=== PATIENT | male | born 1965 | race African-American/Black ===

== ENCOUNTER 2019-10-29 10:57 | Inpatient (IN) ==
[2019-10-29] MEDS ORDERED: LEVOFLOXACIN INJ 750 MG in PREMIX 1 EACH IV STA (11:27)
[2019-10-29 11:56] LABS: Basophils # 0.1 10*3/uL (0.0-0.2); Basophils % 0.5 % (0.0-0.8); Eosinophils # 0.1 10*3/uL (0.0-0.87); Eosinophils % 0.8 % (0.00-10.9); Hemoglobin 9.4 GM/DL (14.0-18.0); Immature Granulocytes % 0.6 %; Immature Granulocytes Absolute 0.08 #; Lymphocytes % 15.1 % (21.2-54.2); Mean Corpuscular HGB Conc 31.3 GM/DL (32-36); Mean Corpuscular Volume 101.4 FL (87-102); Mean Platelet Volume 9.3 FL (9.6-12.0); Monocytes % 11.8 % (1.7-12.7); Neutrophils % 71.2 % (38.7-73.9); Platelet Count 352 T/CUMM (130-400); Red Blood Count 2.96 MC/CUMM (3.8-5.5); Red Cell Distribution Width 13.5 % (9.3-17.3)
[2019-10-29 12:27] LABS: Albumin 1.4 G/DL (3.4-5.0); Calcium 7.7 MG/DL (8.5-10.1); Osmolality,Calculated 286.7 MOS/KG (273-304); Total Protein 5.7 G/DL (6.4-8.3)
[2019-10-29 12:33] LABS: Eosinophils 1 % (0-10); Lymphocytes 9 % (20-55); Polychromasia Slight; Segmented Neutrophils 81 % (50-85); Total Cells Counted 100
[2019-10-29 12:34] LABS: Atypical Lymphocytes Few; Burr Cells Few; Ovalocytes Slight; Platelet Estimate Increased
[2019-10-29 13:01] LABS: Sedimentation Rate-Westergren 119 MM/HR (0-20)
[2019-10-29] MEDS ORDERED: ONDANSETRON 4 MG/2 ML VIAL IV PRN (13:09)
[2019-10-29] MEDS ORDERED: PROMETHAZINE 25 MG/1 ML VIAL IM PRN (13:09)
[2019-10-29] MEDS ORDERED: VANCOMYCIN INJ 1,250 MG in SODIUM CHLORIDE 0.9% 250 ML IV SCH (13:30)
[2019-10-29 14:16] LABS: Apearance,Urine CLEAR (Clear); Bilirubin,Urine Negative (Negative); Blood, Urine Negative (Negative); Glucose,Urine (UA) Negative (Negative); Ketones,Urine Negative (Negative); Mucus,Urine Occasional /LPF (Occasional); Nitrite,Urine Negative (Negative); Protein,Urine 100 MG/DL; RBC,Urine 2 /HPF (0-4); Squamous Epithelial Cell,Urine Occasional /HPF (0-10); Urine Color Yellow (Yellow); Urine Specific Gravity 1.014 (1.001-1.035); Urine Urobilinogen < 2.0 EU/DL (0.2-1.0); WBC,Urine 2 /HPF (0-6)
[2019-10-29] MEDS ORDERED: INFLUENZA VIRUS VACCINE 0.5 ML SYRINGE IM ONE (15:51)
[2019-10-29] MEDS: ENOXAPARIN 40 MG/0.4 ML SYRINGE SUBCUT SCH (17:00)
[2019-10-29] MEDS: SODIUM CHLORIDE 0.9% 1,000 ML IV SCH (17:00)
[2019-10-29] MEDS: PIPERACILLIN/TAZOBACTAM 3,375 MG in SODIUM CHLORIDE 0.9% 100 ML IV SCH ×2 (17:00→22:55)
[2019-10-29] MEDS: hydrALAZINE 25 MG TABLET PO SCH ×2 (17:00→22:56)
[2019-10-29] MEDS: ATORVASTATIN 40 MG TABLET PO SCH (20:18)
[2019-10-29] MEDS: QUEtiapine 100 MG TABLET PO SCH (20:18)
[2019-10-29] MEDS: carvediloL 6.25 MG TABLET PO SCH (20:18)
[2019-10-29] MEDS: ALBUTEROL/IPRATROPIUM 3 ML NEB RESP TX SCH (20:21)
[2019-10-29] MEDS: VANCOMYCIN INJ 1,500 MG in SODIUM CHLORIDE 0.9% 500 ML IV SCH (22:56)
[2019-10-30] MEDS: ALBUTEROL/IPRATROPIUM 3 ML NEB RESP TX SCH ×4 (01:40→19:03)
[2019-10-30] MEDS: SODIUM CHLORIDE 0.9% 1,000 ML IV SCH ×2 (03:20→16:24)
[2019-10-30 05:05] LABS: Basophils # 0.1 10*3/uL (0.0-0.2); Basophils % 0.4 % (0.0-0.8); Eosinophils # 0.4 10*3/uL (0.0-0.87); Eosinophils % 3.1 % (0.00-10.9); Hematocrit 27.6 VOL% (42.0-52.0); Hemoglobin 8.8 GM/DL (14.0-18.0); Immature Granulocytes % 0.6 %; Immature Granulocytes Absolute 0.08 #; Lymphocytes # 1.9 10*3/uL (1.4-4.0); Lymphocytes % 14.7 % (21.2-54.2); Mean Corpuscular HGB Conc 31.9 GM/DL (32-36); Mean Corpuscular Volume 101.1 FL (87-102); Mean Platelet Volume 9.6 FL (9.6-12.0); Monocytes % 13.6 % (1.7-12.7); Neutrophils % 67.6 % (38.7-73.9); Platelet Count 396 T/CUMM (130-400); Red Blood Count 2.73 MC/CUMM (3.8-5.5); Red Cell Distribution Width 13.5 % (9.3-17.3)
[2019-10-30 05:37] LABS: Calcium 7.6 MG/DL (8.5-10.1); Osmolality,Calculated 288.5 MOS/KG (273-304); Risk Ratio 3.37; Thyroid Stimulating Hormone 1.27 uIU/ml (0.358-3.74); VLDL CHOLESTEROL 18.4 MG/DL
[2019-10-30 05:48] LABS: Eosinophils 3 % (0-10); Lymphocytes 15 % (20-55); Platelet Estimate Normal; Polychromasia Few; Segmented Neutrophils 69 % (50-85); Total Cells Counted 100
[2019-10-30] MEDS: ACETAMINOPHEN 325 MG TABLET PO PRN (06:45)
[2019-10-30] MEDS: PIPERACILLIN/TAZOBACTAM 3,375 MG in SODIUM CHLORIDE 0.9% 100 ML IV SCH ×2 (06:48→14:45)
[2019-10-30] MEDS: hydrALAZINE 25 MG TABLET PO SCH ×3 (06:50→21:05)
[2019-10-30] MEDS ORDERED: SODIUM POLYSTYRENE SULFATE 15 GM/60 ML BOTTLE PO STA (08:10)
[2019-10-30] MEDS: ASPIRIN EC 81 MG TABLET PO SCH (08:26)
[2019-10-30] MEDS: PANTOPRAZOLE 40 MG TABLET PO SCH (08:27)
[2019-10-30] MEDS: carvediloL 6.25 MG TABLET PO SCH ×2 (08:27→21:05)
[2019-10-30 12:12] LABS: % Iron Saturation 37.9 % (18-50); Ferritin 1218.7 ng/ml (26-388)
[2019-10-30 12:51] LABS: Folate 6.8 NG/ML (5.4-24.0)
[2019-10-30] MEDS: ENOXAPARIN 40 MG/0.4 ML SYRINGE SUBCUT SCH (14:43)
[2019-10-30] MEDS: QUEtiapine 100 MG TABLET PO SCH (21:05)
[2019-10-30] MEDS: ATORVASTATIN 40 MG TABLET PO SCH (21:05)
[2019-10-30] MEDS: VANCOMYCIN INJ 1,500 MG in SODIUM CHLORIDE 0.9% 500 ML IV SCH (23:12)
[2019-10-31] MEDS: ALBUTEROL/IPRATROPIUM 3 ML NEB RESP TX SCH ×4 (00:39→20:11)
[2019-10-31] MEDS: PIPERACILLIN/TAZOBACTAM 3,375 MG in SODIUM CHLORIDE 0.9% 100 ML IV SCH ×3 (01:10→16:51)
[2019-10-31] MEDS: SODIUM CHLORIDE 0.9% 1,000 ML IV SCH ×2 (05:11→18:34)
[2019-10-31] MEDS: hydrALAZINE 25 MG TABLET PO SCH ×3 (05:12→22:26)
[2019-10-31 06:27] LABS: Basophils # 0.1 10*3/uL (0.0-0.2); Basophils % 0.6 % (0.0-0.8); Eosinophils # 0.6 10*3/uL (0.0-0.87); Eosinophils % 4.4 % (0.00-10.9); Hematocrit 34.4 VOL% (42.0-52.0); Hemoglobin 10.6 GM/DL (14.0-18.0); Immature Granulocytes % 1.5 %; Immature Granulocytes Absolute 0.19 #; Lymphocytes # 2.9 10*3/uL (1.4-4.0); Lymphocytes % 22.4 % (21.2-54.2); Mean Corpuscular HGB Conc 30.8 GM/DL (32-36); Mean Corpuscular Volume 103.6 FL (87-102); Mean Platelet Volume 9.5 FL (9.6-12.0); Monocytes % 10.7 % (1.7-12.7); Neutrophils % 60.4 % (38.7-73.9); Platelet Count 425 T/CUMM (130-400); Red Blood Count 3.32 MC/CUMM (3.8-5.5); Red Cell Distribution Width 13.8 % (9.3-17.3); White Blood Count 12.9 T/CUMM (4-12)
[2019-10-31 06:46] LABS: Calcium 8.1 MG/DL (8.5-10.1); Osmolality,Calculated 290.4 MOS/KG (273-304)
[2019-10-31] MEDS: carvediloL 6.25 MG TABLET PO SCH ×2 (08:14→20:19)
[2019-10-31] MEDS: PANTOPRAZOLE 40 MG TABLET PO SCH (08:14)
[2019-10-31] MEDS: ASPIRIN EC 81 MG TABLET PO SCH (08:15)
[2019-10-31] MEDS: LEVOFLOXACIN INJ 750 MG in PREMIX 1 EACH IV SCH (08:16)
[2019-10-31] MEDS: ENOXAPARIN 40 MG/0.4 ML SYRINGE SUBCUT SCH (13:23)
[2019-10-31] MEDS: CYPROHEPTADINE 4 MG TABLET PO SCH (20:19)
[2019-10-31] MEDS: QUEtiapine 100 MG TABLET PO SCH (20:19)
[2019-10-31] MEDS: ATORVASTATIN 40 MG TABLET PO SCH (20:19)
[2019-10-31] MEDS: VANCOMYCIN INJ 1,500 MG in SODIUM CHLORIDE 0.9% 500 ML IV SCH (23:23)
[2019-11-01] MEDS: ALBUTEROL/IPRATROPIUM 3 ML NEB RESP TX SCH ×4 (00:46→19:02)
[2019-11-01] MEDS: PIPERACILLIN/TAZOBACTAM 3,375 MG in SODIUM CHLORIDE 0.9% 100 ML IV SCH ×3 (01:34→17:44)
[2019-11-01 04:56] LABS: Basophils # 0.1 10*3/uL (0.0-0.2); Basophils % 0.4 % (0.0-0.8); Eosinophils # 0.6 10*3/uL (0.0-0.87); Eosinophils % 4.3 % (0.00-10.9); Hematocrit 26.7 VOL% (42.0-52.0); Hemoglobin 8.4 GM/DL (14.0-18.0); Immature Granulocytes % 0.8 %; Immature Granulocytes Absolute 0.11 #; Lymphocytes % 21.1 % (21.2-54.2); Mean Corpuscular HGB Conc 31.5 GM/DL (32-36); Mean Corpuscular Volume 101.5 FL (87-102); Mean Platelet Volume 9.5 FL (9.6-12.0); Monocytes % 11.6 % (1.7-12.7); Neutrophils % 61.8 % (38.7-73.9); Platelet Count 359 T/CUMM (130-400); Red Blood Count 2.63 MC/CUMM (3.8-5.5); Red Cell Distribution Width 13.7 % (9.3-17.3); White Blood Count 14.2 T/CUMM (4-12)
[2019-11-01 05:19] LABS: Calcium 7.5 MG/DL (8.5-10.1); Osmolality,Calculated 288.3 MOS/KG (273-304)
[2019-11-01] MEDS: hydrALAZINE 25 MG TABLET PO SCH ×3 (05:26→21:33)
[2019-11-01 05:30] LABS: Eosinophils 1 % (0-10); Lymphocytes 16 % (20-55); Myelocytes 1 %; Platelet Estimate Normal; Segmented Neutrophils 74 % (50-85); Total Cells Counted 100
[2019-11-01 05:31] LABS: Hypochromasia Slight; Polychromasia Few
[2019-11-01] MEDS: carvediloL 6.25 MG TABLET PO SCH ×2 (09:41→20:40)
[2019-11-01] MEDS: CYPROHEPTADINE 4 MG TABLET PO SCH ×2 (09:41→20:39)
[2019-11-01] MEDS: ASPIRIN EC 81 MG TABLET PO SCH (09:41)
[2019-11-01] MEDS: CHOLECALCIFEROL 1,000 UNIT TABLET PO SCH (09:41)
[2019-11-01] MEDS: PANTOPRAZOLE 40 MG TABLET PO SCH (09:41)
[2019-11-01] MEDS: ENOXAPARIN 40 MG/0.4 ML SYRINGE SUBCUT SCH (14:40)
[2019-11-01] MEDS: SODIUM CHLORIDE 0.9% 1,000 ML IV SCH (14:43)
[2019-11-01] MEDS ORDERED: SODIUM CHLORIDE 0.9% 100 ML IV ONE (17:38)
[2019-11-01] MEDS: QUEtiapine 100 MG TABLET PO SCH (20:39)
[2019-11-01] MEDS: ATORVASTATIN 40 MG TABLET PO SCH (20:40)
[2019-11-02] MEDS: ALBUTEROL/IPRATROPIUM 3 ML NEB RESP TX SCH ×3 (01:18→13:15)
[2019-11-02] MEDS: hydrALAZINE 25 MG TABLET PO SCH ×2 (06:00→14:49)
[2019-11-02 07:59] LABS: Basophils # 0.1 10*3/uL (0.0-0.2); Basophils % 0.4 % (0.0-0.8); Eosinophils # 0.6 10*3/uL (0.0-0.87); Eosinophils % 4.1 % (0.00-10.9); Hemoglobin 8.1 GM/DL (14.0-18.0); Immature Granulocytes % 0.9 %; Immature Granulocytes Absolute 0.13 #; Lymphocytes % 20.4 % (21.2-54.2); Mean Corpuscular Volume 104.2 FL (87-102); Mean Platelet Volume 9.3 FL (9.6-12.0); Neutrophils % 64.2 % (38.7-73.9); Platelet Count 373 T/CUMM (130-400); Red Blood Count 2.59 MC/CUMM (3.8-5.5); Red Cell Distribution Width 13.9 % (9.3-17.3); White Blood Count 14.6 T/CUMM (4-12)
[2019-11-02 08:06] LABS: Calcium 7.3 MG/DL (8.5-10.1); Osmolality,Calculated 287.3 MOS/KG (273-304)
[2019-11-02 08:18] LABS: Band Neutrophils 3 % (0-10); Eosinophils 5 % (0-10); Lymphocytes 15 % (20-55); Platelet Estimate Normal; Segmented Neutrophils 62 % (50-85); Total Cells Counted 100
[2019-11-02 08:19] LABS: Anisocytosis 1+; Poikilocytosis Slight
[2019-11-02] MEDS: carvediloL 6.25 MG TABLET PO SCH (09:05)
[2019-11-02] MEDS: CHOLECALCIFEROL 1,000 UNIT TABLET PO SCH (09:05)
[2019-11-02] MEDS: CYPROHEPTADINE 4 MG TABLET PO SCH (09:06)
[2019-11-02] MEDS: PANTOPRAZOLE 40 MG TABLET PO SCH (09:07)
[2019-11-02] MEDS: ASPIRIN EC 81 MG TABLET PO SCH (09:07)
[2019-11-02] MEDS: LEVOFLOXACIN INJ 750 MG in PREMIX 1 EACH IV SCH (09:07)
[2019-11-02] MEDS: PIPERACILLIN/TAZOBACTAM 3,375 MG in SODIUM CHLORIDE 0.9% 100 ML IV SCH ×3 (10:46→17:05)
[2019-11-02 12:13] LABS: Albumin 1.2 G/DL (3.4-5.0); Total Protein 5.7 G/DL (6.4-8.3)
[2019-11-02 14:39] LABS: Lymphocytes,Pleural Fluid 67 %; Monocytes,Pleural Fluid 2 %; Neutrophils,Pleural Fluid 31 %
[2019-11-02 14:40] LABS: RBC,Pleural Fluid 5284 T/CUMM
[2019-11-02] MEDS: ENOXAPARIN 40 MG/0.4 ML SYRINGE SUBCUT SCH (14:50)
[2019-11-02] MEDS: ACETAMINOPHEN 325 MG TABLET PO PRN (18:29)
[2019-11-02 18:41] VITALS: BP 115/85
== END 2019-11-02 18:45 | disposition home or self-care (01) | DRG 194 ==
LOC: N.ED 10:57 → N.EDINP 13:09 → N.5E 13:48
PROVIDERS: ADMIT Hospitalist; ATTEND Hospitalist
PROC: IRTHORA (2019-11-02 11:15)